=== PATIENT | male | born 1975 | race Caucasian/White ===

== ENCOUNTER 2023-07-18 07:48 | Day surgery (SDC) | payer OTHER ==
[2023-07-16 09:59] VITALS: BMI 27.8
[2023-07-18 08:21] VITALS: RESP 18
[2023-07-18 12:15] VITALS: BP 126/75; PULSE 76; TEMP 98
== END 2023-07-18 10:10 | disposition home or self-care (01) ==
LOC: FASU-ENDO 07:48
PROVIDERS: ATTEND Internal Medicine Gastroenterology
PROC: 0D5H8ZZ Destruction of Cecum, Via Natural or Artificial Opening Endoscopic (ICD-10-PCS; principal; 2023-07-18 09:09)
DX: Z12.11 Encounter for screening for malignant neoplasm of colon (principal); K55.20 Angiodysplasia of colon without hemorrhage; Z80.0 Family history of malignant neoplasm of digestive organs; Z83.719 Family history of colon polyps, unspecified